=== PATIENT | male | born 1945 | race Caucasian/White ===

== ENCOUNTER 2021-03-08 01:31 | Inpatient (IN) ==
[2021-03-08] MEDS ORDERED: Naloxone 0.4 MG/ML INJ IVP PRN (03:20)
[2021-03-08] MEDS ORDERED: Ondansetron 4 MG/2 ML VIAL IVP PRN (03:20)
[2021-03-08 05:37] LABS: INR 1.4
[2021-03-08 05:38] LABS: Basophils % 0.4 %; Eosinophils % 0.2 %; Hemoglobin 9.3 g/dL (12.9-16.9); Immature Granulocytes % 1.1 % (0-4); Lymphocytes # 1.3 K/mcL (0.6-4.6); Lymphocytes % 29.5 %; Mean Corpuscular Hemoglobin 24.6 pg (28.0-33.3); Mean Corpuscular Volume 79.4 fL (83.0-100.0); Mean Platelet Volume 9.8 fL (9.4-12.4); Monocytes # 0.5 K/mcL (0.0-1.3); Monocytes % 10.9 %; Neutrophils # 2.6 K/mcL (1.6-8.9); Platelet Count 242 K/mcL (140-400); Red Blood Count 3.78 M/mcL (4.19-5.50); Segmented Neutrophils % 57.9 %; White Blood Count 4.5 K/mcL (4.3-11.1)
[2021-03-08 05:42] LABS: Alanine Aminotransferase 33 Units/L (7-52); Albumin 2.6 g/dL (3.5-5.7); Albumin/Globulin Ratio 0.8 (1.1-2.2); Alkaline Phosphatase 63 Units/L (34-104); Aspartate Amino Transferase 53 Units/L (13-39); BUN/Creatinine Ratio 27 (6-26); Bilirubin,Total 0.4 mg/dL (0.3-1.0); Blood Urea Nitrogen 34 mg/dL (8-23); Calcium 9.3 mg/dL (8.6-10.3); Carbon Dioxide 27 mEq/L (23-29); Chloride 98 mEq/L (98-107); Globulin 3.2 g/dL (2.4-3.5); Glucose 88 mg/dL (70-105); Magnesium 1.7 mg/dL (1.6-2.6); Osmolality,Calculated 281 (280-300); Phosphorous 2.8 mg/dL (2.7-4.5); Potassium 3.5 mEq/L (3.5-5.1); Sodium 132 mEq/L (136-145); Total Protein 5.8 g/dL (6.4-8.9); eGFR For African Americans > 60 (> 60); eGFR For Non-African Americans 57 (> 60)
[2021-03-08 06:29] LABS: Platelet Estimate Normal (Normal); Reactive Lymphocytes Present (Not Present); Smudge Cells Present (Not Present)
[2021-03-08] MEDS: Ringers Solution, Lactated 1,000 ML IVC SCH ×2 (06:39→17:04)
[2021-03-08] MEDS ORDERED: predniSONE 10 MG TABLET PO SCH (09:00)
[2021-03-08 15:31] LABS: Hemoglobin 8.3 g/dL (12.9-16.9)
[2021-03-08] MEDS ORDERED: SODIUM CHLORIDE/NAHCO3/KCL/PEG 4,000 ML SOLN.RECON PO ONE (17:00)
[2021-03-08] MEDS: Pantoprazole 40 MG VIAL IVP SCH (17:05)
[2021-03-08 20:39] LABS: Hematocrit 27.3 % (37.5-50.1); Hemoglobin 8.4 g/dL (12.9-16.9)
[2021-03-09 02:45] LABS: Basophils % 0.2 %; Eosinophils % 0.2 %; Hemoglobin 7.9 g/dL (12.9-16.9); Immature Granulocytes % 0.9 % (0-4); Lymphocytes # 1.7 K/mcL (0.6-4.6); Lymphocytes % 30.1 %; Mean Corpuscular HGB Conc 30.4 g/dL (31.6-35.5); Mean Corpuscular Hemoglobin 22.9 pg (28.0-33.3); Mean Corpuscular Volume 75.4 fL (83.0-100.0); Mean Platelet Volume 9.5 fL (9.4-12.4); Monocytes # 0.5 K/mcL (0.0-1.3); Monocytes % 8.6 %; Neutrophils # 3.4 K/mcL (1.6-8.9); Platelet Count 235 K/mcL (140-400); Red Blood Count 3.45 M/mcL (4.19-5.50); Red Cell Distribution Width 18.5 % (11.5-14.5); White Blood Count 5.6 K/mcL (4.3-11.1)
[2021-03-09 03:03] LABS: BUN/Creatinine Ratio 21 (6-26); Blood Urea Nitrogen 23 mg/dL (8-23); Calcium 8.7 mg/dL (8.6-10.3); Carbon Dioxide 27 mEq/L (23-29); Chloride 99 mEq/L (98-107); Glucose 84 mg/dL (70-105); Osmolality,Calculated 277 (280-300); Potassium 3.6 mEq/L (3.5-5.1); Sodium 132 mEq/L (136-145); eGFR For African Americans > 60 (> 60); eGFR For Non-African Americans > 60 (> 60)
[2021-03-09] MEDS: Ringers Solution, Lactated 1,000 ML IVC SCH ×2 (04:19→17:39)
[2021-03-09 06:35] LABS: Hemoglobin 7.5 g/dL (12.9-16.9)
[2021-03-09] MEDS: Pantoprazole 40 MG VIAL IVP SCH ×2 (06:59→17:40)
[2021-03-09] MEDS ORDERED: *HR* Propofol 200 MG/20 ML VIAL IVP ONE (07:23)
[2021-03-09] MEDS ORDERED: Lidocaine -MPF 2% 5 ML VIAL ONE (07:23)
[2021-03-09] MEDS ORDERED: predniSONE 10 MG TABLET PO SCH (09:00)
[2021-03-09] MEDS ORDERED: Isovue-370 500 ML BOTTLE IVP ONE (10:16)
[2021-03-09] MEDS: predniSONE 10 MG TABLET PO SCH (10:16)
[2021-03-09 11:06] LABS: Hematocrit 21.9 % (37.5-50.1); Hemoglobin 6.6 g/dL (12.9-16.9)
[2021-03-09] MEDS ORDERED: 0.9 % Sodium Chloride 250 ML ONE ×2 (12:02→17:24)
[2021-03-09] MEDS: *HR* HYDROcodone/Acet 5/325 mg TABLET PO PRN ×2 (13:33→19:57)
[2021-03-09 16:49] LABS: Hematocrit 26.1 % (37.5-50.1)
[2021-03-09 21:43] LABS: Hematocrit 26.6 % (37.5-50.1); Hemoglobin 8.4 g/dL (12.9-16.9)
[2021-03-10 01:34] LABS: Basophils % 0.2 %; Eosinophils % 0.2 %; Hematocrit 27.4 % (37.5-50.1); Hemoglobin 8.6 g/dL (12.9-16.9); Immature Granulocytes % 0.9 % (0-4); Lymphocytes # 1.2 K/mcL (0.6-4.6); Mean Corpuscular HGB Conc 31.4 g/dL (31.6-35.5); Mean Corpuscular Hemoglobin 24.7 pg (28.0-33.3); Mean Corpuscular Volume 78.7 fL (83.0-100.0); Mean Platelet Volume 9.8 fL (9.4-12.4); Monocytes # 0.4 K/mcL (0.0-1.3); Monocytes % 9.2 %; Neutrophils # 2.7 K/mcL (1.6-8.9); Platelet Count 192 K/mcL (140-400); Red Blood Count 3.48 M/mcL (4.19-5.50); Red Cell Distribution Width 18.2 % (11.5-14.5); Segmented Neutrophils % 61.5 %; White Blood Count 4.4 K/mcL (4.3-11.1)
[2021-03-10 01:53] LABS: BUN/Creatinine Ratio 17 (6-26); Blood Urea Nitrogen 17 mg/dL (8-23); Calcium 8.4 mg/dL (8.6-10.3); Carbon Dioxide 27 mEq/L (23-29); Chloride 102 mEq/L (98-107); Glucose 104 mg/dL (70-105); Osmolality,Calculated 282 (280-300); Potassium 3.2 mEq/L (3.5-5.1); Sodium 135 mEq/L (136-145); eGFR For African Americans > 60 (> 60); eGFR For Non-African Americans > 60 (> 60)
[2021-03-10] MEDS: Ringers Solution, Lactated 1,000 ML IVC SCH ×3 (03:17→23:20)
[2021-03-10] MEDS: Pantoprazole 40 MG VIAL IVP SCH ×2 (05:35→17:15)
[2021-03-10] MEDS: predniSONE 10 MG TABLET PO SCH (07:49)
[2021-03-10] MEDS: *HR* HYDROcodone/Acet 5/325 mg TABLET PO PRN (12:49)
[2021-03-10] MEDS ORDERED: *HR* HYDROmorphone 2 MG/ML SYRINGE IVP PRN (13:30)
[2021-03-10] MEDS: *HR* OxyCODONE ER (12 HR) 10 MG TABLET PO SCH (17:15)
[2021-03-11 00:42] LABS: Eosinophils % 0.4 %; Hematocrit 27.2 % (37.5-50.1); Hemoglobin 8.4 g/dL (12.9-16.9); Lymphocytes # 1.2 K/mcL (0.6-4.6); Lymphocytes % 23.8 %; Mean Corpuscular HGB Conc 30.9 g/dL (31.6-35.5); Mean Corpuscular Hemoglobin 24.8 pg (28.0-33.3); Mean Corpuscular Volume 80.2 fL (83.0-100.0); Mean Platelet Volume 9.5 fL (9.4-12.4); Monocytes # 0.3 K/mcL (0.0-1.3); Monocytes % 6.5 %; Neutrophils # 3.4 K/mcL (1.6-8.9); Platelet Count 203 K/mcL (140-400); Red Blood Count 3.39 M/mcL (4.19-5.50); Red Cell Distribution Width 18.4 % (11.5-14.5); Segmented Neutrophils % 68.3 %
[2021-03-11 01:18] LABS: BUN/Creatinine Ratio 15 (6-26); Blood Urea Nitrogen 16 mg/dL (8-23); Calcium 8.4 mg/dL (8.6-10.3); Carbon Dioxide 28 mEq/L (23-29); Chloride 102 mEq/L (98-107); Glucose 111 mg/dL (70-105); Magnesium 1.5 mg/dL (1.6-2.6); Osmolality,Calculated 284 (280-300); Potassium 3.7 mEq/L (3.5-5.1); Sodium 136 mEq/L (136-145); eGFR For African Americans > 60 (> 60); eGFR For Non-African Americans > 60 (> 60)
[2021-03-11] MEDS: *HR* OxyCODONE ER (12 HR) 10 MG TABLET PO SCH ×2 (05:36→17:37)
[2021-03-11] MEDS: Pantoprazole 40 MG VIAL IVP SCH ×2 (05:38→17:37)
[2021-03-11] MEDS: Piperacillin/Tazobactam 3.375 GM in 0.9 % Sodium Chloride Mini Bag 100 ML IVPB SCH ×2 (08:22→15:31)
[2021-03-11] MEDS: predniSONE 10 MG TABLET PO SCH (08:23)
[2021-03-11] MEDS: Ringers Solution, Lactated 1,000 ML IVC SCH ×2 (08:23→17:42)
[2021-03-11 08:52] LABS: Bilirubin,Urine Negative (Negative); Blood,Urine Negative (Negative); Clarity,Urine Clear (Clear); Color,Urine Light-Yellow (Yellow); Glucose,Urine (UA) Normal (Normal); Ketones,Urine Negative (Negative); Leukocyte Esterase,Urine Negative (Negative); Nitrite,Urine Negative (Negative); PH,Urine 7.5 pH Units (5.0-8.0); Protein,Urine Negative (Neg-Trace); Specific Gravity,Urine 1.015 (1.010-1.025); Urobilinogen,Urine Normal (Normal)
[2021-03-12 00:24] LABS: Basophils % 0.2 %; Eosinophils % 0.2 %; Hematocrit 28.7 % (37.5-50.1); Hemoglobin 8.9 g/dL (12.9-16.9); Immature Granulocytes % 0.8 % (0-4); Lymphocytes # 1.6 K/mcL (0.6-4.6); Lymphocytes % 25.8 %; Mean Corpuscular Hemoglobin 24.7 pg (28.0-33.3); Mean Corpuscular Volume 79.5 fL (83.0-100.0); Monocytes # 0.4 K/mcL (0.0-1.3); Monocytes % 6.7 %; Neutrophils # 4.2 K/mcL (1.6-8.9); Platelet Count 172 K/mcL (140-400); Red Blood Count 3.61 M/mcL (4.19-5.50); Red Cell Distribution Width 19.2 % (11.5-14.5); Segmented Neutrophils % 66.3 %; White Blood Count 6.3 K/mcL (4.3-11.1)
[2021-03-12] MEDS: Piperacillin/Tazobactam 3.375 GM in 0.9 % Sodium Chloride Mini Bag 100 ML IVPB SCH ×3 (00:33→18:08)
[2021-03-12 00:45] LABS: BUN/Creatinine Ratio 13 (6-26); Blood Urea Nitrogen 12 mg/dL (8-23); Calcium 8.1 mg/dL (8.6-10.3); Carbon Dioxide 28 mEq/L (23-29); Chloride 96 mEq/L (98-107); Glucose 87 mg/dL (70-105); Magnesium 1.2 mg/dL (1.6-2.6); Osmolality,Calculated 273 (280-300); Potassium 3.3 mEq/L (3.5-5.1); Sodium 132 mEq/L (136-145); eGFR For African Americans > 60 (> 60); eGFR For Non-African Americans > 60 (> 60)
[2021-03-12] MEDS: Ringers Solution, Lactated 1,000 ML IVC SCH ×2 (03:51→16:50)
[2021-03-12] MEDS: Pantoprazole 40 MG VIAL IVP SCH ×2 (05:26→18:09)
[2021-03-12] MEDS: *HR* OxyCODONE ER (12 HR) 10 MG TABLET PO SCH ×2 (05:26→18:09)
[2021-03-12] MEDS ORDERED: Potassium Chloride Elixir 20 MEQ/15 ML UDC PO ONE (10:42)
[2021-03-12] MEDS: predniSONE 10 MG TABLET PO SCH (11:25)
[2021-03-12 21:00] LABS: Adenovirus Not Detected (Not Detect); Coronavirus 229E Not Detected (Not Detect); Coronavirus HKU1 Not Detected (Not Detect); Coronavirus NL63 Not Detected (Not Detect); Coronavirus OC43 Not Detected (Not Detect)
[2021-03-12 21:01] LABS: Bordetella Pertussis Not Detected (Not Detect); Chlamydophila pneumoniae Not Detected (Not Detect); Human Metapneumovirus Not Detected (Not Detect); Human Rhinovirus/Enterovirus Not Detected (Not Detect); Influenza A Subtype 2009 H1 Not Detected (Not Detect); Influenza B Not Detected (Not Detect); Mycoplasma pneumoniae Not Detected (Not Detect); Parainfluenza Virus 1 Not Detected (Not Detect); Parainfluenza Virus 2 Not Detected (Not Detect); Parainfluenza Virus 3 Not Detected (Not Detect); Parainfluenza Virus 4 Not Detected (Not Detect); Respiratory Syncytial Virus Not Detected (Not Detect)
[2021-03-12 21:05] LABS: SARS-CoV-2 DETECTED (Not Detect)
[2021-03-13] MEDS: Piperacillin/Tazobactam 3.375 GM in 0.9 % Sodium Chloride Mini Bag 100 ML IVPB SCH ×4 (02:13→23:46)
[2021-03-13] MEDS: Ringers Solution, Lactated 1,000 ML IVC SCH ×2 (05:04→15:45)
[2021-03-13 05:45] LABS: Basophils % 0.2 %; Eosinophils % 0.7 %; Hematocrit 28.3 % (37.5-50.1); Immature Granulocytes % 0.7 % (0-4); Lymphocytes # 1.1 K/mcL (0.6-4.6); Lymphocytes % 25.2 %; Mean Corpuscular HGB Conc 31.8 g/dL (31.6-35.5); Mean Corpuscular Hemoglobin 25.2 pg (28.0-33.3); Mean Corpuscular Volume 79.3 fL (83.0-100.0); Mean Platelet Volume 9.4 fL (9.4-12.4); Monocytes # 0.4 K/mcL (0.0-1.3); Monocytes % 8.1 %; Neutrophils # 2.8 K/mcL (1.6-8.9); Platelet Count 157 K/mcL (140-400); Red Blood Count 3.57 M/mcL (4.19-5.50); Red Cell Distribution Width 18.9 % (11.5-14.5); Segmented Neutrophils % 65.1 %; White Blood Count 4.3 K/mcL (4.3-11.1)
[2021-03-13 05:50] LABS: Alanine Aminotransferase 22 Units/L (7-52); Albumin 2.4 g/dL (3.5-5.7); Albumin/Globulin Ratio 0.8 (1.1-2.2); Alkaline Phosphatase 72 Units/L (34-104); Aspartate Amino Transferase 38 Units/L (13-39); BUN/Creatinine Ratio 15 (6-26); Bilirubin,Total 0.5 mg/dL (0.3-1.0); Blood Urea Nitrogen 13 mg/dL (8-23); Calcium 8.4 mg/dL (8.6-10.3); Carbon Dioxide 34 mEq/L (23-29); Chloride 97 mEq/L (98-107); Glucose 130 mg/dL (70-105); Magnesium 2.1 mg/dL (1.6-2.6); Osmolality,Calculated 282 (280-300); Potassium 4.1 mEq/L (3.5-5.1); Sodium 135 mEq/L (136-145); Total Protein 5.4 g/dL (6.4-8.9); eGFR For African Americans > 60 (> 60); eGFR For Non-African Americans > 60 (> 60)
[2021-03-13] MEDS: *HR* OxyCODONE ER (12 HR) 10 MG TABLET PO SCH ×2 (06:32→17:54)
[2021-03-13] MEDS: Pantoprazole 40 MG VIAL IVP SCH ×2 (06:32→17:54)
[2021-03-13] MEDS: predniSONE 10 MG TABLET PO SCH (08:33)
[2021-03-13] MEDS: *HR* OxyCODONE Immed Rel 5 MG TABLET PO PRN (15:44)
[2021-03-14] MEDS: Ringers Solution, Lactated 1,000 ML IVC SCH ×3 (02:18→11:45)
[2021-03-14 02:41] LABS: Basophils % 0.2 %; Eosinophils % 0.2 %; Hematocrit 26.3 % (37.5-50.1); Hemoglobin 8.6 g/dL (12.9-16.9); Immature Granulocytes % 0.6 % (0-4); Lymphocytes # 0.9 K/mcL (0.6-4.6); Lymphocytes % 19.4 %; Mean Corpuscular HGB Conc 32.7 g/dL (31.6-35.5); Mean Corpuscular Hemoglobin 25.9 pg (28.0-33.3); Mean Corpuscular Volume 79.2 fL (83.0-100.0); Mean Platelet Volume 9.6 fL (9.4-12.4); Monocytes # 0.3 K/mcL (0.0-1.3); Monocytes % 6.1 %; Neutrophils # 3.5 K/mcL (1.6-8.9); Platelet Count 155 K/mcL (140-400); Red Blood Count 3.32 M/mcL (4.19-5.50); Red Cell Distribution Width 18.7 % (11.5-14.5); Segmented Neutrophils % 73.5 %; White Blood Count 4.7 K/mcL (4.3-11.1)
[2021-03-14 03:11] LABS: Alanine Aminotransferase 21 Units/L (7-52); Albumin 2.4 g/dL (3.5-5.7); Albumin/Globulin Ratio 0.8 (1.1-2.2); Alkaline Phosphatase 75 Units/L (34-104); Aspartate Amino Transferase 37 Units/L (13-39); BUN/Creatinine Ratio 21 (6-26); Bilirubin,Total 0.5 mg/dL (0.3-1.0); Blood Urea Nitrogen 17 mg/dL (8-23); Calcium 8.4 mg/dL (8.6-10.3); Carbon Dioxide 26 mEq/L (23-29); Chloride 97 mEq/L (98-107); Glucose 138 mg/dL (70-105); Magnesium 1.7 mg/dL (1.6-2.6); Osmolality,Calculated 278 (280-300); Potassium 4.1 mEq/L (3.5-5.1); Sodium 132 mEq/L (136-145); Total Protein 5.4 g/dL (6.4-8.9); eGFR For African Americans > 60 (> 60); eGFR For Non-African Americans > 60 (> 60)
[2021-03-14] MEDS: *HR* OxyCODONE ER (12 HR) 10 MG TABLET PO SCH ×2 (05:16→17:49)
[2021-03-14] MEDS: Piperacillin/Tazobactam 3.375 GM in 0.9 % Sodium Chloride Mini Bag 100 ML IVPB SCH ×2 (08:44→15:24)
[2021-03-14] MEDS: predniSONE 10 MG TABLET PO SCH (08:45)
[2021-03-14] MEDS: *HR* OxyCODONE Immed Rel 5 MG TABLET PO PRN ×2 (09:27→21:05)
[2021-03-14] MEDS ORDERED: Benzonatate 100 MG CAPSULE PO PRN (10:25)
[2021-03-15] MEDS: Piperacillin/Tazobactam 3.375 GM in 0.9 % Sodium Chloride Mini Bag 100 ML IVPB SCH ×3 (00:42→17:05)
[2021-03-15] MEDS: *HR* OxyCODONE ER (12 HR) 10 MG TABLET PO SCH ×2 (05:36→17:05)
[2021-03-15] MEDS: predniSONE 10 MG TABLET PO SCH (08:02)
[2021-03-15] MEDS: *HR* OxyCODONE Immed Rel 5 MG TABLET PO PRN ×2 (12:20→22:34)
[2021-03-16] MEDS: *HR* OxyCODONE ER (12 HR) 10 MG TABLET PO SCH ×2 (06:25→18:02)
[2021-03-16] MEDS: predniSONE 10 MG TABLET PO SCH (09:35)
[2021-03-16] MEDS: *HR* OxyCODONE Immed Rel 5 MG TABLET PO PRN ×2 (09:35→16:06)
[2021-03-17] MEDS: *HR* OxyCODONE ER (12 HR) 10 MG TABLET PO SCH ×2 (05:17→17:06)
[2021-03-17] MEDS: predniSONE 10 MG TABLET PO SCH (08:55)
[2021-03-17] MEDS: Sennosides 8.6 MG TABLET PO SCH (08:55)
[2021-03-17] MEDS: *HR* OxyCODONE Immed Rel 5 MG TABLET PO PRN (09:40)
[2021-03-17] MEDS: Venlafaxine XR (24 HR) 150 MG CAP.ER.24H PO SCH (12:33)
[2021-03-18] MEDS: *HR* OxyCODONE ER (12 HR) 10 MG TABLET PO SCH ×2 (05:55→16:45)
[2021-03-18] MEDS: predniSONE 10 MG TABLET PO SCH (09:00)
[2021-03-18] MEDS: Sennosides 8.6 MG TABLET PO SCH (09:00)
[2021-03-18] MEDS: Venlafaxine XR (24 HR) 150 MG CAP.ER.24H PO SCH (09:00)
[2021-03-18] MEDS: *HR* OxyCODONE Immed Rel 5 MG TABLET PO PRN ×3 (09:00→23:38)
[2021-03-19] MEDS: *HR* OxyCODONE ER (12 HR) 10 MG TABLET PO SCH (05:57)
[2021-03-19 07:19] VITALS: BP 132/85; PULSE 83; TEMP 97.8; O2SAT 93
[2021-03-19] MEDS: Venlafaxine XR (24 HR) 150 MG CAP.ER.24H PO SCH (09:13)
[2021-03-19] MEDS: *HR* OxyCODONE Immed Rel 5 MG TABLET PO PRN (09:13)
[2021-03-19] MEDS: Sennosides 8.6 MG TABLET PO SCH (09:13)
[2021-03-19] MEDS: predniSONE 10 MG TABLET PO SCH (09:14)
== END 2021-03-19 17:16 | disposition other institution (70) | DRG 377 ==
LOC: 2NENU → SUATTDRO 03:08
PROVIDERS: ADMIT Internal Medicine; ATTEND Internal Medicine